=== PATIENT | male | born 1940 | race Caucasian/White ===

== ENCOUNTER 2018-05-09 08:41 | Day surgery (SDC) | payer MEDICARE, BC ==
[~2018-05-09] VITALS: Ht 180.3 cm; Wt 93.6 kg
[2018-05-09 08:52] VITALS: Ht 180.3 cm; Wt 93.6 kg
[2018-05-09] MEDS ORDERED: AMANTADINE100 M1 PO ×2 (08:56)
[2018-05-09] MEDS ORDERED: [UNRECOGNIZED DRUG - OTHER] (08:56)
[2018-05-09] MEDS ORDERED: CARBATROL 200200 MG PO (08:57)
[2018-05-09] MEDS ORDERED: NITROSTAT0.4 MG SL (08:58)
[2018-05-09] MEDS ORDERED: ROSUVASTATIN (08:59)
[2018-05-09 09:07] LABS: BASOPHILS 0.6 % (0-2); EOSINOPHILS 1.1 % (0-7); HEMATOCRIT 40.5 % (42.0-54.0); HEMOGLOBIN 13.7 g/dL (13.5-17.5); LYMPHOCYTES 27.6 % (15-50); MCH 32.6 pg (26.0-34.0); MCHC 33.8 g/dL (31.0-37.0); MCV 96.4 fL (80.0-100.0); MEAN PLATELET VOLUME 10.2 fL (7.4-10.4); MONOCYTES 9.5 % (2-11); NEUTROPHILS 61.2 % (40-80); PLATELET COUNT 131 10x3/uL (130-400); RDW 13.5 % (11.5-14.5); WBC 5.3 10x3/uL (4.8-10.8)
[2018-05-09 09:20] LABS: APTT 31.9 SECONDS (22.8-39.4); INR 1.08 (0.85-1.17); PROTIME 13.5 SECONDS (11.6-15.0)
[2018-05-09 09:25] LABS: ALKALINE PHOSPHATASE 98 U/L (46-116); ALT (SGPT) 30 U/L (10-68); BILIRUBIN - TOTAL 0.54 mg/dL (0.2-1.3); CALC OSMOLALITY 285 mosm/kg (275-300); CALCIUM 9.1 mg/dL (8.5-10.1); CARBON DIOXIDE 28.7 mmol/L (21.0-32.0); CHLORIDE - SERUM 104 mmol/L (98-107); GLUCOSE 98 mg/dL (74-106); PROTEIN - SERUM 7.5 g/dL (6.4-8.2); SODIUM 142 mmol/L (136-145); UREA NITROGEN 21 mg/dL (7-18); eGFR NON AFRICAN AMERICAN 76 mL/min (90-120)
[2018-05-09 09:31] VITALS: BP 161/68
[2018-05-09 10:48] VITALS: BP 169/73
[2018-05-09 14:04] VITALS: BP 149/69
[2018-05-09 14:14] VITALS: BP 171/89
[2018-05-09] MEDS ORDERED: PEPCID40 MG PO (14:50)
[2018-05-09] MEDS ORDERED: PROTONIX40 MG PO (14:50)
--- NOTE | 2018-05-09 21:19 | MORECARE ---
CASE MANAGEMENT DISCHARGE SUMMARY PATIENT: PARESH BARRAGAN UNIT: [id number] ADM DATE: 05/09/18 AGE: 78 : 36 SEX: M ROOM/BED: D.2227 AUTHOR: CHIKA CHEATHAM PHYSICIAN: REFERRING PHYSICIAN: KASIA ONOFRE MD DATE OF SERVICE: 05/09/18 Discharge Plan Patient Name: PARESH BARRAGAN [facility] [facility] 1940 Planned Disposition: Home Anticipated Discharge Date: 05/09/18 Discharge Date: 05/09/2018 Expected LOS: 1 Initial Reviewer: [email or web address] Initial Review Date: 05/09/2018 Generated: 05/09/18 10:19 pm Patient Name: PARESH BARRAGAN Page 51233 at 2118 All edits/amendments must be made on the electronic document DICTATION DATE: 05/09/182118 MANAGER MUSIC: ROSA 05/09/182118 RPT#: [id number] DC DATE:05/09/18 STATUS: DIS IN [facility] [address] [place] [address] END OF REPORT
--- NOTE | 2018-05-09 21:26 | MORECARE ---
CASE MANAGEMENT DISCHARGE SUMMARY PATIENT: PARESH BARRAGAN UNIT: [id number] ADM DATE: 05/09/18 AGE: 78 : 38 SEX: M ROOM/BED: D.2227 AUTHOR: CHIKA CHEATHAM PHYSICIAN: REFERRING PHYSICIAN: KASIA ONOFRE MD DATE OF SERVICE: 05/09/18 Discharge Plan Patient Name: PARESH BARRAGAN [facility] [facility] 1940 Planned Disposition: Home Anticipated Discharge Date: 05/09/18 Discharge Date: 05/09/2018 Expected LOS: 1 Initial Reviewer: [email or web address] Initial Review Date: 05/09/2018 Generated: 05/09/18 10:26 pm DCPIA - Discharge Planning Initial Assessment Updated by [email or web address]: Blossom Davis on 05/09/18 9:21 pm * Is the patient Alert and Oriented? Yes * How many steps to enter\exit or inside your home? 14 * PCP DR OVALLE * Pharmacy [facility] * Preadmission Environment Home with Family * ADLs Partial Dependent * Partial ADLs (Assistance needed) Bathing Dressing * Equipment Cane * Other Equipment DENIES ANY OTHER DME * List name and contact numbers for known caregivers / representatives who currently or will assist patient after discharge: KEERTHI BARRAGAN- SPOUSE- [phone] * Verbal permission to speak to the caregivers and representatives has been obtained from the patient. Yes * Community resources currently utilized None * Please name any agencies selected above. N/A * Additional services required to return to the preadmission environment? No * Can the patient safely return to the preadmission environment? Yes * Has this patient been hospitalized within the prior 30 days at any hospital? No Last DP export: 05/09/18 8:19 p Patient Name: PARESH BARRAGAN Page 89503 at 2126 All edits/amendments must be made on the electronic document DICTATION DATE: 05/09/182124 BOAT OUTBOARD ENGINE MECHANIC: ROSA 05/09/182124 RPT#: [id number] DC DATE:05/09/18 STATUS: DIS IN [facility] [address] [place] [address] END OF REPORT
--- NOTE | 2018-05-09 21:33 | MORECARE ---
CASE MANAGEMENT DISCHARGE SUMMARY PATIENT: PARESH BARRAGAN UNIT: [id number] ADM DATE: 05/09/18 AGE: 78 : 38 SEX: M ROOM/BED: D.2227 AUTHOR: LINDEN,DOC PHYSICIAN: REFERRING PHYSICIAN: KASIA ONOFRE MD DATE OF SERVICE: 05/09/18 Discharge Plan Patient Name: PARESH BARRAGAN Facility: [facility]:[place] : 1940 Planned Disposition: Home Anticipated Discharge Date: 05/09/18 Discharge Date: 05/09/2018 Expected LOS: 1 Initial Reviewer: [email or web address] Initial Review Date: 05/09/2018 Generated: 05/09/18 10:32 pm Comments DCP- Discharge Planning Updated by [email or web address]: Blossom Davis on 05/09/18 8:[address] LATE ENTRY CM MET W/ THE PATIENT AND HIS , KEERTHI BARRAGAN, AT THE BEDSIDE. HE GAVE PERMISSION FOR CM TO SPEAK WITH THE BEING PRESENT. THEY ARE READY TO DISCHARGE TO HOME. DENIED ANY NEEDS. HIS HELPS HIM AT HOME WITH BATHING AND DRESSING. HE IS TAKING CLASSES, [employer], 2/ 3 DAYS A WEEK AT [facility] FOR HIS [place]. AMBULATES WITH A CANE. NO STEPS TO ENTER HIS HOME BUT HAS 14 STEPS W/ A RAIL ON ONE SIDE TO NEGOTIATE TO THE SECOND FLOOR WHERE THE BEDROOMS ARE LOCATED. DENIES ANY OTHER DME NEEDS. NO H/H OR COMMUNITY SERVICES. CM EXPLAINED HOW TO ACCESS SERVICES IF NEEDED AFTER DISCHARGE THRU THE MD OFFICE. DCPIA - Discharge Planning Initial Assessment Updated by [email or web address]: Blossom Davis on 05/09/18 9:21 pm * Is the patient Alert and Oriented? Yes * How many steps to enter\exit or inside your home? 14 * PCP DR OVALLE * Pharmacy [facility] * Preadmission Environment Home with Family * ADLs Partial Dependent * Partial ADLs (Assistance needed) Bathing Dressing * Equipment Cane * Other Equipment DENIES ANY OTHER DME * List name and contact numbers for known caregivers / representatives who currently or will assist patient after discharge: KEERTHI BARRAGAN- SPOUSE- [phone] * Verbal permission to speak to the caregivers and representatives has been obtained from the patient. Yes * Community resources currently utilized None * Please name any agencies selected above. N/A * Additional services required to return to the preadmission environment? No * Can the patient safely return to the preadmission environment? Yes * Has this patient been hospitalized within the prior 30 days at any hospital? No Last DP export: 05/09/18 8:26 p Patient Name: PARESH BARRAGAN Page [id number] at 2133 All edits/amendments must be made on the electronic document DICTATION DATE: 05/09/182131 GAS TRANSFER OPERATOR: ROSA 05/09/182131 RPT#: [id number] DC DATE:05/09/18 STATUS: DIS IN [facility] [address] [place] [address] END OF REPORT
--- NOTE | 2018-05-12 07:19 | MORECARE ---
CASE MANAGEMENT DISCHARGE SUMMARY PATIENT: PARESH BARRAGAN UNIT: [id number] ADM DATE: 05/09/18 AGE: 78 : 38 SEX: M ROOM/BED: D.2227 AUTHOR: LINDEN,DOC PHYSICIAN: REFERRING PHYSICIAN: KASIA ONOFRE MD DATE OF SERVICE: 05/12/18 Discharge Plan Patient Name: PARESH BARRAGAN Facility: [facility]:[place] : 1940 Planned Disposition: Home Anticipated Discharge Date: 05/09/18 Discharge Date: 05/09/2018 Expected LOS: 1 Initial Reviewer: [email or web address] Initial Review Date: 05/09/2018 Generated: 05/12/18 8:18 am Comments DCP- Discharge Planning Updated by [email or web address]: Blossom Davis on 05/09/18 8:[address] LATE ENTRY CM MET W/ THE PATIENT AND HIS , KEERTHI BARRAGAN, AT THE BEDSIDE. HE GAVE PERMISSION FOR CM TO SPEAK WITH THE BEING PRESENT. THEY ARE READY TO DISCHARGE TO HOME. DENIED ANY NEEDS. HIS HELPS HIM AT HOME WITH BATHING AND DRESSING. HE IS TAKING CLASSES, [employer], 2/ 3 DAYS A WEEK AT [facility] FOR HIS [place]. AMBULATES WITH A CANE. NO STEPS TO ENTER HIS HOME BUT HAS 14 STEPS W/ A RAIL ON ONE SIDE TO NEGOTIATE TO THE SECOND FLOOR WHERE THE BEDROOMS ARE LOCATED. DENIES ANY OTHER DME NEEDS. NO H/H OR COMMUNITY SERVICES. CM EXPLAINED HOW TO ACCESS SERVICES IF NEEDED AFTER DISCHARGE THRU THE MD OFFICE. DCPIA - Discharge Planning Initial Assessment Updated by [email or web address]: Blossom Davis on 05/09/18 9:21 pm * Is the patient Alert and Oriented? Yes * How many steps to enter\exit or inside your home? 14 * PCP DR OVALLE * Pharmacy [facility] * Preadmission Environment Home with Family * ADLs Partial Dependent * Partial ADLs (Assistance needed) Bathing Dressing * Equipment Cane * Other Equipment DENIES ANY OTHER DME * List name and contact numbers for known caregivers / representatives who currently or will assist patient after discharge: KEERTHI BARRAGAN- SPOUSE- [phone] * Verbal permission to speak to the caregivers and representatives has been obtained from the patient. Yes * Community resources currently utilized None * Please name any agencies selected above. N/A * Additional services required to return to the preadmission environment? No * Can the patient safely return to the preadmission environment? Yes * Has this patient been hospitalized within the prior 30 days at any hospital? No Last DP export: 05/09/18 8:33 p Patient Name: PARESH BARRAGAN Page 36573 at 0719 All edits/amendments must be made on the electronic document DICTATION DATE: 05/12/18717 DETECTIVE AUTOMOBILE SECTION: DM 05/12/18717 RPT#: [id number] DC DATE:05/09/18 STATUS: DIS IN [facility] [address] [place] [address] END OF REPORT
== END 2018-05-09 18:32 | disposition home or self-care (01) ==
LOC: OBSVTIME → D.OPS 08:41 → D.ER 08:41 → D.EDHOLD 09:50 → OBSVTIME 09:50 → D.ER 09:50 → D.MS 09:50 → D.EDHOLD 10:33 → D.MS 10:33 → D.ER 11:00 → EDSTATUS 17:34 → D.MS 18:32 → D.OPS 18:32
PROVIDERS: Emergency Medicine; ATTEND Emergency Medicine
DX: T18.128A Food in esophagus causing other injury, initial encounter (principal); G20 Parkinson's disease; E78.5 Hyperlipidemia, unspecified; I10 Essential (primary) hypertension; K21.9 Gastro-esophageal reflux disease without esophagitis; E86.0 Dehydration

== ENCOUNTER → 2018-05-26 08:34 | Outpatient (CLI) | payer MEDICARE, BC ==
[2018-05-09 08:52] VITALS: BMI 28.8
[~2018-05-26 08:34] MED LIST: AMANTADINE100 M1 PO; CARBATROL 200200 MG PO; NITROSTAT0.4 MG SL; PEPCID40 MG PO; PROTONIX40 MG PO; ROSUVASTATIN; [UNRECOGNIZED DRUG - OTHER]
== END | disposition home or self-care (01) ==
LOC: D.RAD 08:34
PROVIDERS: ATTEND Internal Medicine Gastroenterology
DX: R13.10 Dysphagia, unspecified (principal); K21.9 Gastro-esophageal reflux disease without esophagitis

== ENCOUNTER 2019-10-14 15:28 | Day surgery (SDC) | payer MEDICARE, BC ==
[~2019-10-14] VITALS: Ht 180.3 cm; Wt 92.3 kg
[2019-10-14 15:51] VITALS: Ht 180.3 cm; Wt 92.3 kg
[2019-10-14 16:29] LABS: BASOPHILS 0.5 % (0-2); EOSINOPHILS 1.7 % (0-7); HEMATOCRIT 41.5 % (42.0-54.0); HEMOGLOBIN 13.9 g/dL (13.5-17.5); IMMATURE GRANULOCYTES 0.2 % (0-5); LYMPHOCYTES 27.8 % (15-50); MCH 32.3 pg (26.0-34.0); MCHC 33.5 g/dL (31.0-37.0); MCV 96.5 fL (80.0-100.0); MEAN PLATELET VOLUME 9.9 fL (7.4-10.4); MONOCYTES 11.5 % (2-11); NEUTROPHILS 58.3 % (40-80); PLATELET COUNT 148 10x3/uL (130-400); RDW 13.3 % (11.5-14.5)
[2019-10-14 16:32] LABS: ANION GAP 12.8 mmol/L (8-16); CALCIUM 9.3 mg/dL (8.5-10.1); CARBON DIOXIDE 28.6 mmol/L (21.0-32.0); CREATININE - SERUM 1.2 mg/dL (0.6-1.3); POTASSIUM - SERUM 4.4 mmol/L (3.5-5.1)
[2019-10-14 16:36] LABS: ALBUMIN 4.1 g/dL (3.4-5.0); BILIRUBIN - TOTAL 0.35 mg/dL (0.2-1.3); PROTEIN - SERUM 7.4 g/dL (6.4-8.2)
[2019-10-14 17:30] VITALS: BP 140/612
--- NOTE | 2019-10-14 19:42 | NUR ---
PATIENT IS ALERT AND ORIENTED, PATIENT ABLE TO SWALLOW WITH NO DIFFICULTY AND NO CHOKING. PATIENT WAS ABLE TO GET DRESSED WITH LITTLE HELP FROM HIS . PIV REMOVED FROM LEFT WRIST CATH INTACT. PATIENT WHEELED OUT TO CARE VIA WHEELCHAIT TO MEET DAUGHTER. NO OTHER NEEDS AT THIS TIME.
== END 2019-10-14 19:56 | disposition home or self-care (01) ==
LOC: D.OPS 15:28 → D.ER 15:28 → D.M2 17:31 → EDSTATUS 18:59 → D.OPS 19:56
PROVIDERS: Emergency Medicine; ATTEND Internal Medicine Gastroenterology
DX: R09.89 Other specified symptoms and signs involving the circulatory and respiratory systems (principal); K21.0 Gastro-esophageal reflux disease with esophagitis; K22.2 Esophageal obstruction; T18.128A Food in esophagus causing other injury, initial encounter; X58.XXXA Exposure to other specified factors, initial encounter; K44.9 Diaphragmatic hernia without obstruction or gangrene